=== PATIENT | male | born 1980 | race Caucasian/White ===

== ENCOUNTER 2017-06-04 13:23 | Emergency (ER) | payer BC ==
[~2017-06-04] VITALS: Ht 177.8 cm; Wt 85.2 kg
[2017-06-04] MEDS ORDERED: MOTRIN800 MG PO (13:54)
[2017-06-04 13:58] VITALS: BP 114/74
== END 2017-06-04 14:04 | disposition home or self-care (01) | DRG 392 ==
LOC: ED 13:23
DX: R10.2 Pelvic and perineal pain (principal); F19.90 Other psychoactive substance use, unspecified, uncomplicated; Z72.89 Other problems related to lifestyle